=== PATIENT | female | born 1945 | race Caucasian/White ===

== ENCOUNTER → 2016-07-23 | Day surgery (SDC) | payer MEDICARE, OTHER ==
[2016-07-17 14:38] VITALS: BMI 30.2
--- NOTE | 2016-07-22 11:10 | SC.ANESEVA ---
Anesthesia Eval & Plan ([facility]) - Providers Surgeon:: Jenny Valle - Medications/Allergies Allergies: Allergies No Known Allergies Allergy (Verified 06/09/15 12:15) Current Medication List: Reviewed - Focused Physical Exam NPO since: Since after Midnight Mallampati: Class II Thyromental Distance: Greater than 3 Neck: Full Range of Motion Dental: Normal - no significant findings Cardiovascular/Chest: Normal (RRR no mumurs or rubs.) Respiratory: Lungs clear. negative: Wheezing Any problems with anesthesia, including nausea and vomiting?: No Any relatives with a history of Malignant Hyperthermia?: No Prone to Motion Sickness: No Other: Diagnoses COMBINED FORMS OF AGE-RELATED CATARACT, LEFT EYE (07/23/16) Problem List Problem Status Onset Abdominal pain Acute Abdominal pain of multiple sites Acute Acute cystitis with hematuria Acute Acute on chronic renal failure Acute Acute on chronic renal insufficiency Acute Dehydration Acute Dyslipidemia Acute Generalized weakness Acute Hypokalemia Acute Proctitis Acute Urinary tract infection Acute Gastroesophageal reflux disease Chronic Hypertension Chronic Allergies Allergy/AdvReac Type Severity Reaction Status Date / Time No Known Allergies Allergy Verified 06/09/15 12:15 Home Medications Medication Instructions Recorded Last Taken Type Aspirin [Aspir 81] 81 mg PO QAM 05/18/12 03/23/16 History Atenolol [Tenormin] 50 mg PO BID 05/18/12 03/23/16 History [place]-3 Fatty Acids/Fish Oil [Fish 1 cap PO QAM 05/18/12 03/23/16 History Oil 1,000 mg Capsule] Omeprazole [Prilosec] 40 mg PO QAM 05/18/12 03/23/16 History Furosemide [Lasix] 20 mg PO QAM 10/30/14 03/23/16 History Rosuvastatin [Crestor] 40 mg PO HS 10/30/14 03/22/16 History Tramadol HCl [Ultram] 50 mg PO .Q8HW/TYLENOL 500MG PRN 10/30/14 06/07/15 08:30 History Acetaminophen Ex Str Tablet 500 mg PO .SEE COMMENTS 06/04/15 06/04/15 History [TYLENOL EXTRA STRENGTH Tablet] Bisacodyl [Dulcolax] 10 mg PO DAILY #30 tablet 06/07/15 03/23/16 Rx Probiotic Blend [Aurelia Q] 1 tab PO BIDLS #60 tablet 06/07/15 03/23/16 Rx Senna Concentrate [Senokot] 1 tab PO BID #60 tablet 06/07/15 03/23/16 Rx Verapamil HCl [Verapamil ER] 240 mg PO DAILY 06/09/15 03/23/16 History Hydrochlorothiazide 25 mg PO DAILY 03/23/16 03/23/16 History Mirabegron [Myrbetriq] 25 mg PO DAILY 03/23/16 03/23/16 History Naproxen 500 mg PO BID 03/23/16 03/23/16 History Nitrofurantoin [Macrobid] 100 mg PO BID #14 cap 03/23/16 Unknown Rx Height and Weight Patient's height 5 ft 1 in Patient's weight 72.73 kg Weight (Calculated Kilograms) 72.730 BMI 30.2 - Anesthetic Plan Anesthesia Type: MAC ASA Class: 3 - Focused Review of Systems Cardiac History: Yes: Hx Hypertension, Hx Cardiac Catheterization (remote. No stents.), Hx Cardiac Disorders, Hx Abnormal Cholesterol/Hyperlipidemia HEENT: Yes: Cataracts ("starting"), Hx Vision Problem (GLASSES) Respiratory: Yes: Hx Recent Cold/Flu ("cold") No: Hx Chronic Obstructive Pulmonary Disease (COPD) Gastrointestinal: Yes: Hx Gastroesophageal Reflux Disease, Hx Colonoscopy ( April 24 1012-except for mild diverticulosis and internal hemorrhoids), Hx Endoscopy (June 2012 small hiatal hernia) Genitourinary: Yes: Hx Renal Disease (STAGE [address]. [address] Rodriguez.) Neurological/Musculoskeletal: Yes: Hx Syncope, Hx Migraine ("have not had in years") No: Hx Neurological Disorders Endocrine: No: Hx Hypothyroidism Blood/Autoimmune: No: Hx Blood Transfusions, Hx AIDS, Hx Hepatitis (type) Smoking Status: Never smoker Past Social History: Denies: Substance Use Disorder Surgical History: Yes: T&A
[~2016-07-23] MED LIST: BSS 500 ml-Vancomycin 10 mg-Phenylephrine 1 mg Irrigation IR ONE; CHONDROITIN SULFATE 0.5 ML/PFS INTRAOC ONE; DEXAMETHASONE 4 MG/ML VIAL IV PRN; DIAZEPAM 5 MG TAB PO PRN; FENTANYL 100 MCG/2 ML VIAL ONE; Hyaluronate Sodium (Provisc) 5.5 mg/0.55 ml syringe INTRAOC ONE; LABETALOL 20 MG/4 ML SYRINGE IV PRN; MIDAZOLAM 2 MG/2 ML VIAL ONE; ONDANSETRON HCL 4 MG/2 ML VIAL IV PRN; PHENYLEPHRINE 2.5% OPHTH SOLN 2 ML BOT OP EYE ONE; SCOPOLAMINE TRANSDERMAL PATCH TOP ONE; TETRACAINE 0.5% 4 ML OPHTH SOLN OP EYE ONE; TETRACAINE 0.5% 4 ML OPHTH SOLN OP EYE PRN; TROPICAMIDE 1% OPHTH SOLN 2 ML BOTTLE OP EYE ONE; Vancomycin 10 MG, Phenylephrine 1,000 MCG in Balanced Salt Solution 500 ML IO ONE; hydrALAZINE 20 MG/ML VIAL IV PRN
[2016-07-23 08:55] VITALS: TEMP 97.8
[2016-07-23 10:09] VITALS: BP 148/62; PULSE 67
--- NOTE | 2016-07-23 10:21 | HIMOPRPT ---
DATE OF PROCEDURE: 07/23/16 PREOPERATIVE DIAGNOSIS: Cataract left eye. POSTOPERATIVE DIAGNOSIS: Cataract left eye. PROCEDURE: Cataract extraction by phacoemulsification of the left eye SURGEON: Jenny Valle MD. ANESTHESIA: IV Sedation/Topical. COMPLICATIONS: None. PRE-OPERATIVE EVALUATION: The patient has been examined and deemed medically stable for cataract extraction with no apparent need for inpatient observation; outpatient setting is appropriate. Patient appears to be oriented to time, place and person. PROCEDURE IN DETAIL: The correct eye confirmed by patient, doctor, staff and paperwork. The operative eye was then marked by the doctor in the preoperative area. Eye drops were instilled into the operative eye to dilate the pupil. The patient was transported to the operating room and was placed in the supine position. A time out was performed before the beginning of the procedure. The operative eye was prepped and draped in the usual sterile fashion for ophthalmic surgery, taking care to isolate the lashes from the surgical field. Topical anesthetic drops were instilled into the operative eye. A lid speculum was placed. Betadine 5% was instilled in the operative eye for antiseptic. Microscope was brought into place for use throughout the case. The eye was inspected. A paracentesis incision was created with a side port knife. The temporal limbal corneal incision was performed with a daysi blade. Viscoelastic was injected into the anterior chamber. Capsule forceps were used to create a capsulorhexis. Hydrodissection was performed with BSS. The nucleus was removed by phacoemulsification. Phaco time is noted below. The remaining cortical material was removed by I&A. The capsular bag was noted to be intact and distended with viscoelastic. The Intraocular lens was placed into the intact bag and centered without difficulty. The remaining viscoelastic was removed by I&A. Betadine 5% drops were placed to inspect wound and for antisepsis. Inspection revealed watertight wounds. The lid speculum was removed. Postoperative medications were instilled into the eye and a shield secured over the operative eye. IOL Type [id number] IOL Power 17.00 CDE 6.90 Discharge Summary: There were no complications and the patient was taken to the postoperative area in good condition. Postoperative instructions and outpatient follow up time were given.
--- NOTE | 2016-07-23 10:30 | SC.ANESPOS ---
Post-Anesthesia Note LOC: Fully Awake Post-Anesthesia Assessment: Awake, Returned to Baseline, Hemodynamically Stable , Pain Control Adequate Phase I & II Recovery Complete: Yes Apparent Anesthesia Complication: No : N - Vital Signs Blood Pressure: 148/62 Pulse: 67 Resp Rate: 18 O2 Sat: 96 Temp: 97.8 F
== END ==
LOC: CPSC 08:05
PROVIDERS: ATTEND Ophthalmology
PROC: 08RK3JZ Replacement of Left Lens with Synthetic Substitute, Percutaneous Approach (ICD-10-PCS; principal; 2016-07-23 10:00)
DX: H25.812 Combined forms of age-related cataract, left eye (principal); I12.9 Hypertensive chronic kidney disease with stage 1 through stage 4 chronic kidney disease, or unspecified chronic kidney disease; N18.3 Chronic kidney disease, stage 3 (moderate); E78.5 Hyperlipidemia, unspecified; K21.9 Gastro-esophageal reflux disease without esophagitis; Z79.899 Other long term (current) drug therapy
CPT/HCPCS: 66984; A9270; J2250; J3010; V2632; J3490